=== PATIENT | male | born 1975 | race Caucasian/White ===

== ENCOUNTER 2017-01-16 20:25 | Emergency (ER) | payer OTHER ==
[2017-01-16 22:06] VITALS: BP 178/128
== END 2017-01-16 23:09 | disposition home or self-care (01) ==
LOC: ED 20:25
DX: S86.912A Strain of unspecified muscle(s) and tendon(s) at lower leg level, left leg, initial encounter (principal); M79.89 Other specified soft tissue disorders; I10 Essential (primary) hypertension; X58.XXXA Exposure to other specified factors, initial encounter; Y93.89 Activity, other specified; Y92.89 Other specified places as the place of occurrence of the external cause; Y99.8 Other external cause status
CPT/HCPCS: A4570

== ENCOUNTER 2017-11-15 23:07 | Emergency (ER) | payer OTHER ==
[~2017-11-15] VITALS: Ht 170.2 cm; Wt 86.2 kg
[2017-11-15 23:20] VITALS: Ht 170.2 cm; Wt 86.2 kg
[2017-11-16 04:21] VITALS: BP 177/90
== END 2017-11-16 04:21 | disposition home or self-care (01) ==
LOC: ED 23:07
DX: L23.9 Allergic contact dermatitis, unspecified cause (principal); I10 Essential (primary) hypertension
CPT/HCPCS: J1200; J7512

== ENCOUNTER 2020-05-04 18:05 | Emergency (ER) | payer OTHER, SELFPAY ==
[~2020-05-04] VITALS: Ht 172.7 cm; Wt 88.5 kg
[2020-05-04 18:09] VITALS: Ht 172.7 cm; Wt 88.5 kg
[2020-05-04 20:09] VITALS: BP 180/119
== END 2020-05-04 20:09 | disposition home or self-care (01) ==
LOC: ED 18:05
DX: I10 Essential (primary) hypertension (principal); Z20.828 Contact with and (suspected) exposure to other viral communicable diseases
CPT/HCPCS: U0003